=== PATIENT | male | born 1955 | race Caucasian/White ===

== ENCOUNTER → 2023-06-29 06:35 | Outpatient (REF) | payer MEDICARE, OTHER, SELFPAY ==
[2023-06-29 07:40] LABS: % Basophils 0.7 % (0-2); % Eosinophils 1.4 % (0-6); % Immature Granulocytes 0.5 % (0-0.5); % Monocytes 8.2 % (1.7-9.3); % Neutrophils 49.2 % (42.2-75.2); Absolute Eosinophils 0.1 10^3/uL (0-0.7); Absolute Lymphocytes 1.8 10^3/uL (1.2-3.4); Absolute Monocytes 0.4 10^3/uL (0.1-0.6); Absolute Neutrophils 2.2 10^3/uL (1.4-6.5); Hematocrit 41.7 % (39.0-52.0); Hemoglobin 14.4 g/dL (13.0-18.0); Mean Corp Hgb Conc. 34.5 g/dL (33.0-37.0); Mean Corpuscular Hgb 29.3 pg (27.0-31.0); Mean Corpuscular Volume 84.8 fL (80.0-94.0); Mean Platelet Volume 10.4 fL (7.4-10.4); Nucleated Red Blood Cells % 0 % (-); Platelet Count 169 10^3/uL (130-400); Red Blood Cell Count 4.92 10^6/uL (4.70-6.10); Red Cell Dist. Width 12.3 % (11.5-14.5); White Blood Cell Count 4.4 10^3/uL (4.8-10.8)
[2023-06-29 08:00] LABS: ALT (SGPT) 23 U/L (0-50); AST (SGOT) 29 U/L (17-59); Albumin 4.3 g/dl (3.5-5.0); Alkaline Phosphatase 71 U/L (38-126); Blood Urea Nitrogen 28 mg/dl (9-20); Calcium 9.3 mg/dl (8.4-10.2); Carbon Dioxide 29 mmol/L (22-30); Chloride 102 mmol/L (98-107); Glucose 99 mg/dl (70-99); Potassium 4.2 mmol/L (3.5-5.1); Sodium 139 mmol/L (135-145); Total Bilirubin 0.8 mg/dl (0.2-1.3); Total Protein 6.7 g/dl (6.3-8.2); eGFR > 60.00
[2023-06-29 08:43] LABS: TSH 2.29 uIU/ml (0.47-4.68)
[2023-07-01 01:18] LABS: Lipoprotein a (Lp a) <6 mg/dL (<=29)
[2023-07-01 01:21] LABS: PSA Total 3.6 ng/mL (0.0-4.0)
== END ==
LOC: REG 06:35
PROVIDERS: ATTENDING PHYSICIAN Nurse Practitioner; FAMILY PHYSICIAN Surgery
DX: I48.0 Paroxysmal atrial fibrillation (principal); K21.9 Gastro-esophageal reflux disease without esophagitis; R10.9 Unspecified abdominal pain; I36.1 Nonrheumatic tricuspid (valve) insufficiency; R41.89 Other symptoms and signs involving cognitive functions and awareness; F41.8 Other specified anxiety disorders; A60.00 Herpesviral infection of urogenital system, unspecified; R97.20 Elevated prostate specific antigen [PSA]
CPT/HCPCS: 36415; 80053; 83695; 84153; 84154; 84443; 85025

== ENCOUNTER → 2024-04-16 11:28 | Outpatient (REF) | payer MEDICARE, OTHER, SELFPAY ==
[2024-04-17 18:13] LABS: PSA Total 3.8 ng/mL (0.0-4.0)
== END ==
LOC: REG 11:28
PROVIDERS: ATTENDING PHYSICIAN Surgery; FAMILY PHYSICIAN Nurse Practitioner
DX: R97.20 Elevated prostate specific antigen [PSA] (principal)
CPT/HCPCS: 36415; 84153; 84154

== ENCOUNTER → 2024-05-21 11:30 | Outpatient (REF) | payer MEDICARE, OTHER, SELFPAY ==
[2024-05-21 17:08] LABS: Urine Albumin Negative (Neg - Trace); Urine Bilirubin Negative (Negative); Urine Character Clear (Clear); Urine Color Yellow; Urine Glucose Negative (Negative); Urine Ketone Negative (Negative); Urine Leukocyte Negative (Negative); Urine Nitrite Negative (Negative); Urine Occult Blood 4+ (Negative); Urine Specific Gravity 1.015 (<1.030); Urine Urobilinogen Negative (Neg - 1+)
[2024-05-21 17:28] LABS: Urine Red Blood Cell 50-60 /HPF (0-2); Urine Squamous Cell 0-2 /LPF (Few)
[2024-05-21 17:31] LABS: Urine Bacteria Many (Negative)
== END ==
LOC: CLAB 11:30
PROVIDERS: ATTENDING PHYSICIAN Surgery
DX: N39.0 Urinary tract infection, site not specified (principal)
CPT/HCPCS: 81003; 81015; 87077; 87086; 87186

== ENCOUNTER → 2025-03-11 06:49 | Outpatient (REF) | payer MEDICARE, OTHER, SELFPAY ==
[2025-03-11 08:02] LABS: ALT (SGPT) 26 U/L (0-50); AST (SGOT) 28 U/L (17-59); Albumin 4.3 g/dl (3.5-5.0); Alkaline Phosphatase 70 U/L (38-126); Blood Urea Nitrogen 18 mg/dl (9-20); Calcium 9.4 mg/dl (8.4-10.2); Carbon Dioxide 31 mmol/L (22-30); Chloride 104 mmol/L (98-107); Glucose 96 mg/dl (70-99); Hematocrit 42.0 % (39.0-52.0); Hemoglobin 13.9 g/dL (13.0-18.0); Mean Corp Hgb Conc. 33.1 g/dL (33.0-37.0); Mean Corpuscular Volume 87.3 fL (80.0-94.0); Nucleated Red Blood Cells % 0 % (-); Platelet Count 181 10^3/uL (130-400); Potassium 4.5 mmol/L (3.5-5.1); Red Cell Dist. Width 12.7 % (11.5-14.5); Sodium 141 mmol/L (135-145); Total Protein 6.8 g/dl (6.3-8.2); eGFR > 60.00
[2025-03-11 08:33] LABS: TSH 2.21 uIU/ml (0.47-4.68)
[2025-03-11 15:54] LABS: HDL Cholesterol 82 mg/dl; LDL Cholesterol, Calculated 90 mg/dl; Very Low Density Lipoprotein 19 mg/dl (0-30)
== END ==
LOC: REG 06:49
PROVIDERS: ATTENDING PHYSICIAN Nurse Practitioner; REFERRING PHYSICIAN Surgery
DX: R97.20 Elevated prostate specific antigen [PSA] (principal); E78.5 Hyperlipidemia, unspecified; R53.83 Other fatigue
CPT/HCPCS: 36415; 80053; 80061; 84153; 84154; 84443; 85025